=== PATIENT | male | born 1950 | race Caucasian/White ===

== ENCOUNTER 2017-01-09 18:52 | Emergency (ER) | payer MEDICARE ==
[2017-01-09 16:24] LABS: WBC (NOT ORDERED) (RFLEX) 0 (0-5)
[2017-01-09 16:32] LABS: ASCORBIC ACID (UR NOT ORDER) NEG (NEG); BILIRUBIN, URINE NEGATIVE (NEG); ER URINALYSIS TAT 0 Hrs 09 Mins; KETONE, URINE NEGATIVE (NEG); LEUKOCYTE ESTERASE(NOT OR NEG (NEG); NITRITE (URINE) NEG (NEG)
[2017-01-09 16:43] LABS: ALKALINE PHOSPHATASE 110 U/L (45-117); BUN (BLOOD UREA NITROGEN) 12 MG/DL (6-23); CALCIUM, SERUM 9.1 MG/DL (8.5-10.4); CHLORIDE, SERUM 108 MMOL/L (96-112); CO2 (CARBON DIOXIDE) 27 MMOL/L (24-34); CREATININE 1.06 MG/DL (0.70-1.30); GFR AFRICAN AMERICAN 83 ML/MIN (>=60); GFR NON AFRICAN AMERICAN 72 ML/MIN (>=60); POTASSIUM, SERUM 4.2 MMOL/L (3.5-5.3); SGOT(AST) 21 U/L (5-40); SGPT(ALT) 45 U/L (5-65); SODIUM, SERUM 143 MMOL/L (135-148)
[2017-01-09 16:45] LABS: A/G RATIO 1.1 (0.7-1.9); ALBUMIN 3.7 G/DL (3.5-5.0); BASOPHILS 0.6 %; BASOPHILS ABSOLUTE 0.07 10/3/uL (0.0-0.16); EOSINOPHILS 4.4 %; EOSINOPHILS ABSOLUTE 0.49 10/3/uL (0.0-0.53); ER CBC TAT 0 Hrs 22 Mins; GLOBULIN 3.4 G/DL (2.5-4.1); GLUCOSE, SERUM 106 MG/DL (60-99); HEMATOCRIT 43.2 % (40.0-51.0); HEMOGLOBIN 14.6 g/dL (13.6-17.8); IMMATURE GRANULOCYTES 0.2 %; IMMATURE GRANULOCYTES ABSOLUTE 0.02 10/3/uL (0.0-0.11); LYMPHOCYTES 16.4 %; LYMPHOCYTES ABSOLUTE 1.83 10/3/uL (0.67-4.30); MANUAL DIFF NO %; MEAN CORPUS HGB CONC 33.8 g/dL (32.0-36.0); MEAN CORPUSCULAR HEMOGLOB 29.9 pg (26.0-34.0); MEAN CORPUSCULAR VOLUME 88.3 fL (80-100); MEAN PLATELET VOLUME 9.2 fL (9.2-13.0); MONOCYTES 9.9 %; NEUTROPHILS 68.5 %; NEUTROPHILS ABSOLUTE 7.64 10/3/uL (2.02-8.40); PLATELET COUNT 159 10/3/uL (150-400); RBC DISTRIBUTION WIDTH 14.3 % (12.0-16.0); RED CELL COUNT 4.89 10/6/uL (4.7-6.1); TOTAL BILIRUBIN 0.7 MG/DL (0-1.2); TOTAL PROTEIN 7.1 G/DL (6.0-8.5); WHITE BLOOD CELLS 11.2 10/3/uL (4.5-10.5)
[~2017-01-09 18:52] MED LIST: ASA5GR PO; ASABAYER PO; BETAPACE80 PO; COREG3 PO; DORYX100 MG PO; ELIQUIS 5 MG TAB5 MG PO; LIPITOR40 PO; LOP25 PO; LOP50 PO; MONO10 PO; MONO20 PO; PROZAC PO; ULTRAM50 PO
== END 2017-01-09 21:02 | disposition home or self-care (01) ==
LOC: ER 18:52
PROVIDERS: Emergency Medicine
DX: N20.1 Calculus of ureter (principal); I10 Essential (primary) hypertension; Z79.82 Long term (current) use of aspirin; Z79.899 Other long term (current) drug therapy
CPT/HCPCS: 74176; 80053; 81001; 83690; 85025; 96372; 99284; J1170